=== PATIENT | male | born 1990 | race Caucasian/White ===

== ENCOUNTER 2020-07-18 17:23 | Emergency (ER) | payer SELFPAY ==
--- NOTE | 2020-07-18 18:24 | EDM.PDOC ---
ED HPI GENERAL MEDICAL PROBLEM - General Chief Complaint: Chest Pain Stated Complaint: CHEST PAIN,SOB, HAS HX OF ANXIETY Time Seen by Provider: 07/18/20 17:41 Source of Information: Reports: Patient, RN Notes Reviewed - History of Present Illness INITIAL COMMENTS - FREE TEXT/NARRATIVE: 29 yr old male with palpitations, mild nonspecific chest discomfort off and on the past 2 days, sx resolved at time of exam. Has been drinking alcohol quite heavy the last few yrs, up to 1 liter of hard liquor per day, most days. Last alcohol about 4 to 5 days ago. No hx of other known medical problems. No recent cough, fever or chills. - Related Data Allergies Allergy/AdvReac Type Severity Reaction Status Date / Time No Known Allergies Allergy Verified 07/18/20 17:37 Home Meds: Home Meds . [No Known Home Meds] 07/18/20 [History] Past Medical History - Past Surgical History HEENT Surgical History: Reports: Oral Surgery Social & Family History - Family History Family Medical History: No Pertinent Family History - Tobacco Use Tobacco Use Status *Q: Light Tobacco User Years of Tobacco use: 5 Packs/Tins Daily: 0.1 - Caffeine Use Caffeine Use: Reports: None - Alcohol Use Days Per Week of Alcohol Use: 4 Number of Drinks Per Day: 10 Total Drinks Per Week: 40 - Recreational Drug Use Recreational Drug Use: No ED ROS GENERAL - Review of Systems Review Of Systems: See Below Constitutional: Denies: Fever, Chills HEENT: Reports: No Symptoms Respiratory: Denies: Shortness of Breath, Cough Cardiovascular: Reports: Chest Pain, Palpitations GI/Abdominal: Denies: Abdominal Pain, Nausea, Vomiting Musculoskeletal: Denies: Neck Pain, Shoulder Pain Skin: Reports: No Symptoms Neurological: Reports: No Symptoms Psychiatric: Reports: Anxiety ED EXAM, GENERAL - Physical Exam Exam: See Below General Appearance: Alert, No Apparent Distress Eye Exam: Bilateral Eye: PERRL Head: Atraumatic Neck: Supple Respiratory/Chest: No Respiratory Distress, Lungs Clear, Normal Breath Sounds Cardiovascular: Regular Rate, Rhythm GI/Abdominal: Soft, Non-Tender Back Exam: No: CVA Tenderness (L), CVA Tenderness (R) Extremities: No: Pedal Edema, Leg Pain Neurological: Alert, Oriented, No Motor/Sensory Deficits Psychiatric: Normal Affect, Normal Mood Skin Exam: Warm, Dry, Normal Color #1 Interpretation EKG Date: 07/18/20 Rhythm: NSR [place]: Normal P-Wave: Present QRS: Normal ST-T: Normal Course - Vital Signs Last Recorded V/S: Last Vital Signs Temp 98.2 F 07/18/20 17:34 Pulse 77 07/18/20 17:34 Resp 17 07/18/20 17:34 BP 162/107 H 07/18/20 17:34 Pulse Ox 99 07/18/20 17:34 - Orders/Labs/Meds Labs: Laboratory Tests 07/18/20 07/18/20 07/18/20 Range/Units 18:47 18:47 18:47 WBC 10.39 H (4.23-9.07) K/mm3 RBC 5.16 (4.63-6.08) M/mm3 Hgb 15.6 (13.7-17.5) gm/dl Hct 46.7 (40.1-51.0) % MCV 90.5 (79.0-92.2) fl MCH 30.2 (25.7-32.2) pg MCHC 33.4 (32.2-35.5) g/dl RDW Std Deviation 43.0 (35.1-43.9) fL Plt Count 278 (163-337) K/mm3 MPV 10.5 (9.4-12.3) fl Neut % (Auto) 78.4 H (34.0-67.9) % Lymph % (Auto) 12.9 L (21.8-53.1) % [place] % (Auto) 6.6 (5.3-12.2) % Eos % (Auto) 1.4 (0.8-7.0) Baso % (Auto) 0.5 (0.1-1.2) % Neut # (Auto) 8.14 H (1.78-5.38) K/mm3 Lymph # (Auto) 1.34 (1.32-3.57) K/mm3 [place] # (Auto) 0.69 (0.30-0.82) K/mm3 Eos # (Auto) 0.15 (0.04-0.54) K/mm3 Baso # (Auto) 0.05 (0.01-0.08) K/mm3 Manual Slide Review Normal smear Sodium 141 (136-145) mEq/L Potassium 4.0 3.9 (3.5-5.1) mEq/L Chloride 102 (98-107) mEq/L Carbon Dioxide 26 (21-32) mEq/L Anion Gap 16.9 H (5-15) BUN 14 (7-18) mg/dL Creatinine 0.9 (0.7-1.3) mg/dL Est Cr Clr Drug Dosing 138.10 mL/min Estimated GFR (MDRD) > 60 (>60) mL/min BUN/Creatinine Ratio 15.6 (14-18) Glucose 94 (74-106) mg/dL Calcium 9.4 (8.5-10.1) mg/dL Total Bilirubin 0.3 (0.2-1.0) mg/dL AST 37 (15-37) U/L ALT 99 H (16-63) U/L Alkaline Phosphatase 58 (46-116) U/L Total Protein 8.3 H (6.4-8.2) g/dl Albumin 4.2 (3.4-5.0) g/dl Globulin 4.1 gm/dL Albumin/Globulin Ratio 1.0 (1-2) - Re-Assessments/Exams Free Text/Narrative Re-Assessment/Exam: 07/19/20 16:24 Mother and pt concerned about potassium with hx of alcohol abuse. That was good at 3.9. AST, anion gap very mildly elevated. Discharge instr. as documented. Departure - Departure Time of Disposition: 19:23 Disposition: Home, Self-Care 01 Condition: Fair Clinical Impression: Palpitations, Atypical chest pain Instructions: Nonspecific Chest Pain, Adult, [id number], Palpitations, [id number] Referrals: PCP,None [Primary Care Provider] - Forms: ED Department Discharge Additional Instructions: Your EKG this evening is normal. Potassium is good at 4.0. CBC and complete chemistry panel is pending. I will plan to call you results tomorrow afternoon. If you want to sign a release of medical record this evening that is acceptable. The medical record will be completed tomorrow afternoon. Eat a healthy cardiac diet as discussed. Avoid drinking large amounts of alcohol. Begin a regular exercise program as discussed. Follow up clinic as needed. Return to ED as needed if symptoms worsening in any way. Sepsis Event Note (ED) - Evaluation Sepsis Screening Result: No Definite Risk
== END 2020-07-18 20:08 | disposition home or self-care (01) ==
LOC: JD.ED 17:23
DX: R00.2 Palpitations (principal); R07.89 Other chest pain; Z72.0 Tobacco use
CPT/HCPCS: 36415; 80053; 84132; 85025; 93005; 93010; 99284; 99285-25

== ENCOUNTER 2021-04-08 12:51 | Emergency (ER) | payer SELFPAY ==
--- NOTE | 2021-04-08 13:30 | EDM.PDOC ---
ED HPI GENERAL MEDICAL PROBLEM - General Chief Complaint: Chest Pain Stated Complaint: CHEST PAIN\ LT ARM PAIN Time Seen by Provider: 04/08/21 13:02 Source of Information: Reports: Patient, RN Notes Reviewed History Limitations: Reports: No Limitations - History of Present Illness INITIAL COMMENTS - FREE TEXT/NARRATIVE: Patient is a 30-year-old male presenting to the emergency department with complaints of heart palpitations. He describes it as intermittent pounding in his chest as well as sensation that his heart is racing. Patient reports he developed symptoms around 8 AM this morning and that they tested intermittently for a few hours, however after he arrived in [place] that resolved. Of note, patient lives approximately [place] minutes away from [place]. Patient reports he felt sensation of numbness in his left arm, however this resolved when the palpitations resolved. He denies any pain or shortness of breath associated with these episodes. Patient has had similar symptoms in the past. Reports recurrence a few times per week, normally associated with a drinking the evening before. Patient reports that he drinks 3 to 4 days a week to excess. He will drink approximately a liter of whiskey in one evening. He has decided that he would like to stop drinking and has asked for information about resources available locally. He denies any significant cardiac history. Last drink was around 7 PM last evening. Patient does not have a primary care provider. - Related Data Allergies Allergy/AdvReac Type Severity Reaction Status Date / Time No Known Allergies Allergy Verified 07/18/20 17:37 Home Meds: Home Meds . [No Known Home Meds] 07/18/20 [History] Past Medical History - Past Surgical History HEENT Surgical History: Reports: Oral Surgery Social & Family History - Family History Family Medical History: No Pertinent Family History - Caffeine Use Caffeine Use: Reports: None ED ROS GENERAL - Review of Systems Review Of Systems: Comprehensive ROS is negative, except as noted in HPI. ED EXAM, GENERAL - Physical Exam Exam: See Below Exam Limited By: No Limitations General Appearance: Alert, WD/WN, No Apparent Distress Respiratory/Chest: No Respiratory Distress, Lungs Clear, Normal Breath Sounds, No Accessory Muscle Use, Chest Non-Tender Cardiovascular: Normal Peripheral Pulses, Regular Rate, Rhythm, No Edema, No Gallop, No JVD, No Murmur, No Rub GI/Abdominal: Normal Bowel Sounds, Soft, Non-Tender, No Organomegaly, No Distention, No Abnormal Bruit, No Mass Neurological: Alert, Oriented, CN II-XII Intact, Normal Cognition, Normal Gait, Normal Reflexes, No Motor/Sensory Deficits Psychiatric: Normal Affect, Normal Mood Skin Exam: Warm, Dry, Intact, Normal Color, No Rash #1 Interpretation EKG Date: 04/08/21 Time: 13:11 Rhythm: NSR Rate (Beats/Min): 97 [place]: Normal P-Wave: Present QRS: Normal ST-T: Normal QT: Normal Course - Vital Signs Last Recorded V/S: Last Vital Signs Temp 97.3 F 04/08/21 14:40 Pulse 91 04/08/21 14:40 Resp 24 H 04/08/21 14:40 BP 160/77 H 04/08/21 14:40 Pulse Ox 95 04/08/21 14:40 - Orders/Labs/Meds Labs: Laboratory Tests 04/08/21 04/08/21 Range/Units 13:05 13:05 WBC 12.45 H (4.23-9.07) K/mm3 RBC 5.53 (4.63-6.08) M/mm3 Hgb 16.4 (13.7-17.5) gm/dl Hct 48.6 (40.1-51.0) % MCV 87.9 (79.0-92.2) fl MCH 29.7 (25.7-32.2) pg MCHC 33.7 (32.2-35.5) g/dl RDW Std Deviation 43.6 (35.1-43.9) fL Plt Count 340 H (163-337) K/mm3 MPV 10.3 (9.4-12.3) fl Neut % (Auto) 72.3 H (34.0-67.9) % Lymph % (Auto) 15.4 L (21.8-53.1) % [place] % (Auto) 7.0 (5.3-12.2) % Eos % (Auto) 4.3 (0.8-7.0) Baso % (Auto) 0.8 (0.1-1.2) % Neut # (Auto) 9.00 H (1.78-5.38) K/mm3 Lymph # (Auto) 1.92 (1.32-3.57) K/mm3 [place] # (Auto) 0.87 H (0.30-0.82) K/mm3 Eos # (Auto) 0.53 (0.04-0.54) K/mm3 Baso # (Auto) 0.10 H (0.01-0.08) K/mm3 Sodium 138 (136-145) mEq/L Potassium 4.3 (3.5-5.1) mEq/L Chloride 101 (98-107) mEq/L Carbon Dioxide 26 (21-32) mEq/L Anion Gap 15.3 H (5-15) BUN 15 (7-18) mg/dL Creatinine 1.0 (0.7-1.3) mg/dL Est Cr Clr Drug Dosing 123.18 mL/min Estimated GFR (MDRD) > 60 (>60) mL/min BUN/Creatinine Ratio 15.0 (14-18) Glucose 98 (70-99) mg/dL Calcium 9.6 (8.5-10.1) mg/dL Magnesium 2.0 (1.8-2.4) mg/dL Total Bilirubin 0.4 (0.2-1.0) mg/dL AST 24 (15-37) U/L ALT 62 (16-63) U/L Alkaline Phosphatase 80 (46-116) U/L Troponin I < 0.017 (0.00-0.056) ng/mL Total Protein 8.2 (6.4-8.2) g/dl Albumin 4.3 (3.4-5.0) g/dl Globulin 3.9 gm/dL Albumin/Globulin Ratio 1.1 (1-2) - Re-Assessments/Exams Free Text/Narrative Re-Assessment/Exam: Patient is a 30-year-old male presenting to the emergency department for evaluation of recurrent palpitations with most recent episode being this morning. He reports worsening of palpitations the morning after heavy alcohol consumption. If he goes a few days without drinking, the symptoms slowly improved. He has no chest pain or SOB. Symptoms of palpitations are not present at this time. Patient reports drinking a liter of whiskey 3 to 4 days a week and feels like he needs help to stop drinking. I ordered blood work, EKG, chest x- ray. I did briefly discussed alcohol treatment options locally. We will discuss this further once test results are available. 04/08/21 14:23 Hematology significant for WBC slightly elevated 12.45. Electrolytes are normal. Troponin undetectably low. Chest x-ray shows no acute abnormalities. EKG shows normal sinus rhythm with no evidence of acute ischemia. Results discussed with patient. Palpitations are likely related to his heavy alcohol consumption. Discussed the option of Holter monitor, patient declined at this time. Recommend that he stop drinking. We did discuss treatment options at [facility] and recommended he go to open intake tomorrow. I will send referral to Dr. Garfield Freeman to establish care and for ER follow-up. Discussed return precautions. Discharge instructions as documented. Departure - Departure Time of Disposition: 14:24 Disposition: Home, Self-Care 01 Condition: Good Clinical Impression: Palpitations Instructions: Palpitations Referrals: Garfield Hurd MD [Physician] - Forms: ED Department Discharge Additional Instructions: Abstain from alcohol use. Increase intake of oral fluids. Follow-up with [facility] for assistance to stop drinking. Call tomorrow to set up an ER follow-up and to establish care with provider, Dr. Garfield Freeman. The phone number to call is [phone]. Return to ER for any new or worsening symptoms of concern. Sepsis Event Note (ED) - Focused Exam Vital Signs: Vital Signs Temp Pulse Resp BP Pulse Ox 04/08/21 14:40 97.3 F 91 24 H 160/77 H 95 04/08/21 13:09 97.1 F 97 20 162/90 H 95
--- NOTE | 2021-04-08 14:23 | CR ---
Chest: PA and lateral views of the chest were obtained. Comparison: No prior chest imaging is available. Heart size and mediastinum are normal. Lungs are clear with no acute parenchymal change seen. Bony structures show nothing acute. Impression: 1. Nothing acute is seen on 2-view chest x-ray. Diagnostic code #1
== END 2021-04-08 14:45 | disposition home or self-care (01) ==
LOC: JD.ED 12:51
DX: R00.2 Palpitations (principal)
CPT/HCPCS: 36415; 71046; 71046-26; 80053; 83735; 84484; 85025; 93005; 99285-25